=== PATIENT | female | born 1955 | race Caucasian/White ===

== ENCOUNTER → 2017-11-22 | Outpatient (CLI) | payer MEDICARE, MEDICAID | LOC: COL.PUL 14:29 | DX: R06.02 Shortness of breath (principal) | CPT/HCPCS: J7674 ==

== ENCOUNTER → 2019-08-21 | Outpatient (CLI) | payer MEDICARE, MEDICAID | LOC: COL.RAD 09:35 | DX: M35.2 Behcet's disease (principal) | CPT/HCPCS: A9537; J2805 ==